=== PATIENT | female | born 1950 | race Caucasian/White ===

== ENCOUNTER 2019-08-19 09:59 | Emergency (ER) | payer OTHER ==
--- OUTSIDE RECORDS SUMMARY | 2019-08-19 10:00 | XMS REPORT | Clinical Summary ---
:1950 Author Organization [facility] Address [address] [place] [address] Care Team Providers Name Role Phone Vanessa Mcdonnell As Primary Care Provider Allergies Active Allergy Reactions Severity Noted Date Comments Codeine 03/18/2017 Medications Medication Sig Dispensed Refills Start Date End Date Status venlafaxine 0 12/18/2016 Active (EFFEXOR) 75 MG tablet lovastatin (MEVACOR) 0 03/02/2017 Active 20 MG tablet TOVIAZ 8 mg tablet 0 12/22/2016 Active extended release 24 hr choline fenofibrate 0 01/07/2017 Active (TRILIPIX) 135 mg capsule CRANBERRY FRUIT Take by 0 Active EXTRACT (CRANBERRY mouth. 1500 ORAL) mg 2 per day vitamin E 1000 UNIT Take 1,000 0 Active capsule Units by mouth daily. cholecalciferol, Take 2,000 0 Active vitamin D3, (VITAMIN Units by D3) 2,000 unit mouth capsule capsule daily. DOCOSAHEXANOIC Take by 0 Active ACID/EPA (FISH OIL mouth. 1400 ORAL) mg MULTIVITAMIN ORAL Take by 0 Active mouth. UNABLE TO FIND Jana 0 Discontinued Bi-Flex 9 (Therapy completed) Active Problems Problem Noted Date Other osteoporosis without current pathological fracture 03/18/2018 Hypercalcemia 03/18/2018 Encounters Date Type Specialty Care Team Description 03/21/2019 Office Visit Endocrinology Marcus Duke, Other osteoporosis without current pathological fracture (Primary Dx); Hypercalcemia 03/21/2019 Ancillary Procedure Radiology Marcus Duke, Other osteoporosis without current pathological fracture 03/21/2019 Orders Only Endocrinology Tiffany Cook, Other osteoporosis MA without current pathological fracture (Primary Dx) after 08/18/2018 Family History Medical History Relation Name Comments Heart disease Father Diabetes Mother Hypertension Mother Relation Name Status Comments Father Mother Social History Tobacco Use Types Packs/Day Years Used Date Never Smoker Smokeless Tobacco: Never Used Alcohol Use Drinks/Week oz/Week Comments Yes socially Sex Assigned at Date Recorded Not on file Job Start Date Occupation Industry Not on file Not on file Not on file Travel History Travel Start Travel End No recent travel history available. Last Filed Vital Signs Vital Sign Reading Time Taken Comments Blood Pressure 147/85 03/21/2019 1:05 PM CDT Pulse 84 03/21/2019 1:05 PM CDT Temperature - - Respiratory Rate - - Oxygen Saturation - - Inhaled Oxygen Concentration - - Weight 80.8 kg (178 lb 3.2 oz) 03/21/2019 1:05 PM CDT Height 163.8 cm (5' 4.5") 03/21/2019 1:05 PM CDT Body Mass Index 30.12 03/21/2019 1:05 PM CDT Plan of Treatment Date Type Specialty Care Team Description 03/26/2020 Appointment Radiology Marcus Duke MD [address] [place], [place] [id number] 03/26/2020 Office Visit Endocrinology Marcus Duke MD [address] [place], [place] [id number] Health Maintenance Due Date Last Done Comments BREAST CANCER SCREENING 2001 COLONOSCOPY SCREENING 2001 SHINGLES VACCINES (#1) 2001 65+ PNEUMOCOCCAL VACCINE (1 of 2 - PCV13) 2016 INFLUENZA VACCINE 06/30/2019 Procedures Procedure Name Priority Date/Time Associated Diagnosis Comments BONE DENSITY Routine 03/21/2019 12:38 PM Other osteoporosis Results for this CDT without current procedure are in pathological fracture the results section. after 08/18/2018 Results Bone Density (03/21/2019 12:38 PM CDT) Specimen Narrative Performed At [facility] [address] [place] [address] Bone Density Report Name: Rocio Figueroa Sex: Female Age: 68 Ethnicity: White Height: 64.5 in Referring Provider: MARCUS DUKE Date of : 1950 Weight: 178.2lb Indication: Postmenopausal osteoporosis Accession number: [id number] Bone Density: Exam date 03/21/2019 Region BMD (g/cm2) T-score Z-score Classification AP Spine(L1-L4) 0.848 -1.80.1 Osteopenia Femoral Neck(Left) 0.522 -2.9 -1.3 Osteoporosis Total Hip(Left) 0.698 -2.0 -0.6 Osteopenia Femoral Neck(Right) 0.538 -2.8 -1.2 Osteoporosis Total Hip(Right) 0.640 -2.5 -1.1 Osteoporosis Total Hip Mean 0.669 -2.3 -0.9 Osteopenia World Health Organization criteria for BMD impression classify patients as Normal (T-score at or above 1.0), Osteopenia (T-score between 1.0 and 2.5), or Osteoporosis (T-score at or below 2.5). 10-year Fracture Risk: Major Osteoporotic Fracture 16% Hip Fracture 4.2% Reported Risk Factors: [place] (), T-score(WHO)=-2.8, BMI=30.1 FRAX Version 3.08. Fracture probability calculated for an untreated patient. Fracture probability may be lower if the patient has received treatment. Previous Exams: Region Exam Date Age BMD (g/cm2) T-score BMD Change vs. Baseline BMD Change vs. Previous AP Spine(L1-L4) 03/21/2019 68 0.848 -1.8 3.1%* 3.1%* 03/18/2018 67 0.822 -2.0 Total Hip(Left) 03/21/2019 68 0.698 -2.0 2.4% 2.4% 03/18/2018 67 0.682 -2.1 Total Hip(Right) 03/21/2019 68 0.640 -2.5 4.1% 4.1% 03/18/2018 67 0.615 -2.7 *Denotes significance at 95% confidence level, LSC for AP Spine=0.022 g/cm2,LSC for Total Hip=0.027 g/cm2 Impression: The patient has osteoporosis, based on the Left Femoral Neck T-score. The patient has an estimated ten-year risk of hip fracture of 4.2% and an estimated ten-year risk of major fracture of 16%, based on the WHO FRAX algorithm. No significant bone loss was observed. Discussion: INCREASED RISK OF FRACTURE. BONE DENSITY IS UNDESIRABLY LOW AT ONE OR MORE SKELETAL SITES, CONSISTENT WITH POSTMENOPAUSAL OSTEOPOROSIS. This patient's lowest T-score meets the World Health Organization's (WHO) criteria for osteoporosis at one or more sites (T-score -2.5 or below). In untreated patients, the risk of osteoporotic fracture increases approximately two-fold for each 1.0 SD decrease in T-score.Low bone density is not the only risk factor for fracture; also consider factors such as patient's age, frailty or poor health, risk of falling, risk of injury, previous osteoporotic fracture, family history of osteoporosis, cigarette smoking, low body weight, etc. Not everyone with low bone mineral density has osteoporosis; osteomalacia and other metabolic bone disorders should also be considered. Patients who have osteoporosis should be evaluated for specific diseases and conditions (secondary causes) that may cause or contribute to bone loss. The [place] Association of Clinical Endocrinologists (AACE) and National Osteoporosis Foundation (NOF) recommend pharmacologic intervention for all postmenopausal women whose T-score is in this range. The patient should follow a healthful lifestyle (good nutrition with adequate calcium and vitamin D, and appropriate weight-bearing exercise). Follow-Up: Consider a repeat BMD and Vertebral Fracture Assessment (VFA) exam in 1-2 years or sooner if medically necessary, to reassess this patient's status. Reported by: Marcus Duke MD, [facility] [place], [facility] on 03/22/2019 6:18:00 AM. 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
[2019-08-19] MEDS ORDERED: ACETAMINOPHEN 325 MG TABLET ONE (10:27)
[2019-08-19] MEDS ORDERED: IBUPROFEN 200 MG TAB PO ONE (10:28)
--- NOTE | 2019-08-19 10:56 | RAD REPORT ---
EXAM DESCRIPTION: RAD - Shoulder Left 2 View - 08/19/2019 10:50 am CLINICAL HISTORY: Fall, left shoulder pain COMPARISON: None. TECHNIQUE: Internal and external rotation views of the left shoulder were obtained. FINDINGS: Curvilinear fracture is present involving the greater tuberosity of the proximal left ayana kylee near the bicipital groove. There is minimal displacement of the fracture fragment. No dislocation of the humeral head. No pathologic component. AC joint is normal in appearance. Acromial humeral levy nt space is normal. IMPRESSION: Fracture of the greater tuberosity proximal left humerus noted with minimal displacement .
--- NOTE | 2019-08-19 11:09 | ER ---
Nurse's Notes [facility] Name: Rocio Fiugeroa Age: 68 yrs Sex: Female : 1950 Arrival Date: 08/19/2019 Time: 10:01 Bed 11 Private MD: Diagnosis: Nondisplaced fracture of greater tuberosity of left humerus Presentation: 08/19 10:04 Presenting complaint: Patient states: Yesterday she slipped and fell and landed on her aj1 left shoulder, she has been having pain since then that is worse when she tries to raise her arm. Transition of care: patient was not received from another setting of care. Onset of symptoms was August 18, 2019. Risk Assessment: Do you want to hurt yourself or someone else? Patient reports no desire to harm self or others. Initial Sepsis Screen: Does the patient meet any 2 criteria? No. Patient's initial sepsis screen is negative. Does the patient have a suspected source of infection? No. Patient's initial sepsis screen is negative. Care prior to arrival: None. 10:04 Method Of Arrival: Ambulatory aj 10:04 Acuity: ABHISHEK 4 aj1 Triage Assessment: 10:08 General: Appears in no apparent distress. uncomfortable, Behavior is calm, cooperative, aj1 appropriate for age. Pain: Complains of pain in anterior aspect of left shoulder and posterior aspect of left shoulder Pain currently is 7 out of 10 on a pain scale. Neuro: Level of Consciousness is awake, alert, obeys commands. Cardiovascular: Patient's skin is warm and dry. Respiratory: Airway is patent Respiratory effort is even, unlabored, Respiratory pattern is regular, symmetrical. GI: No signs and/or symptoms were reported involving the gastrointestinal system. : No signs and/or symptoms were reported regarding the genitourinary system. Derm: No signs and/or symptoms reported regarding the dermatologic system. Skin is pink, warm \T\ dry. normal. Musculoskeletal: Range of motion: limited in left shoulder. Historical: - Allergies: 10:08 Codeine; aj1 - Home Meds: 10:08 Lovastatin Oral [Active]; Toviaz oral oral [Active]; venlafaxine oral oral [Active]; aj1 cranberry oral oral [Active]; Probiotic oral oral [Active]; Colace oral oral [Active]; Fish Oil oral oral [Active]; multivitamin oral oral [Active]; Vitamin D Oral [Active]; - PMHx: 10:08 breast cancer- left mastectomy; cyst under neck; Hyperlipidemia; aj1 - Immunization history:: Flu vaccine is up to date. - Social history:: Smoking status: Patient/guardian denies using tobacco. - Ebola Screening: : Patient denies travel to an Ebola-affected area in the 21 days before illness onset. Screenin:29 Abuse screen: Denies threats or abuse. Denies injuries from another. Nutritional hb screening: No deficits noted. Tuberculosis screening: No symptoms or risk factors identified. Fall Risk None identified. Assessment: 10:29 Reassessment: Patient appears in no apparent distress at this time. No changes from hb previously documented assessment. Patient and/or family updated on plan of care and expected duration. Pain level reassessed. Patient is alert, oriented x 3, equal unlabored respirations, skin warm/dry/pink. 11:15 Reassessment: Patient appears in no apparent distress at this time. Patient and/or hb family updated on plan of care and expected duration. Pain level reassessed. Patient is alert, oriented x 3, equal unlabored respirations, skin warm/dry/pink. 11:16 Reassessment: Discharge ordered, awaiting copies of radiology christ per CARLOS Mccann. hb Vital Signs: 10:08 BP 148 / 81; Pulse 92; Resp 18; Temp 98.1; Pulse Ox 97% on R/A; Weight 78.47 kg (R); aj1 Height 5 ft. 4 in. (162.56 cm) (R); Pain 7/10; 10:08 Body Mass Index 29.70 (78.47 kg, 162.56 cm) aj1 ED Course: 10:01 Patient arrived in ED. as 10:04 Triage completed. aj1 10:08 Arm band placed on Patient placed in an exam room. aj1 10:14 Ramy Garcia PA is PHCP. cp 10:14 Ketan Hanley MD is Attending Physician. cp 10:29 Patient has correct armband on for positive identification. Call light in reach. hb 10:57 XRAY Shoulder LEFT 2 view In Process Unspecified. EDMS 10:58 Pablo Castillo MD is Referral Physician. cp 11:03 Referral Physician role handed off by Pablo Castillo MD cp 11:04 Pablo Castillo MD is Referral Physician. cp 11:05 Juanita Rod, RN is Primary Nurse. hb 11:15 No provider procedures requiring assistance completed. Patient did not have IV access hb during this emergency room visit. Administered Medications: 10:29 Drug: Ibuprofen 800 mg Route: PO; hb 11:14 Follow up: Response: No adverse reaction hb 10:29 Drug: Tylenol 650 mg Route: PO; hb 11:15 Follow up: Response: No adverse reaction hb Outcome: 11:00 Discharge ordered by MD. cp 11:15 Discharged to home ambulatory. hb 11:15 Condition: stable 11:15 Discharge instructions given to patient, Instructed on discharge instructions, follow up and referral plans. medication usage, Demonstrated understanding of instructions, follow-up care, medications, Prescriptions given X 2. 11:30 Patient left the ED. hb Signatures: Dispatcher [employer] EDMS More Hand RN RN aj1 Johanna Cook as Ramy Garcia PA PA cp Juanita Rod, RN RN hb
--- NOTE | 2019-08-19 11:10 | EDPHYS ---
Physician Documentation [facility] Name: Rocio Figueroa Age: 68 yrs Sex: Female : 1950 Arrival Date: 08/19/2019 Time: 10:01 Bed 11 Private MD: ED Physician Ketan Hanley HPI: 08/19 10:18 This 68 yrs old Female presents to ER via Ambulatory with complaints of cp Shoulder Pain. 10:18 The patient or guardian complains of decreased range of motion, an injury, pain, that cp is acute, tenderness. left shoulder. Context: resulted from a fall, The patient experiences decreased range of motion, when attempts to raise arm, The patient reports no obvious deformity. Onset: The symptoms/episode began/occurred yesterday. Historical: - Allergies: 10:08 Codeine; aj1 - Home Meds: 10:08 Lovastatin Oral [Active]; Toviaz oral oral [Active]; venlafaxine oral oral [Active]; aj1 cranberry oral oral [Active]; Probiotic oral oral [Active]; Colace oral oral [Active]; Fish Oil oral oral [Active]; multivitamin oral oral [Active]; Vitamin D Oral [Active]; - PMHx: 10:08 breast cancer- left mastectomy; cyst under neck; Hyperlipidemia; aj1 - Immunization history:: Flu vaccine is up to date. - Social history:: Smoking status: Patient/guardian denies using tobacco. - Ebola Screening: : Patient denies travel to an Ebola-affected area in the 21 days before illness onset. ROS: 10:25 Constitutional: Negative for body aches, chills, fever, poor PO intake. cp 10:25 Eyes: Negative for injury, pain, redness, and discharge. cp 10:25 Neck: Negative for pain with movement, pain at rest, stiffness, tenderness, bony tenderness. 10:25 Cardiovascular: Negative for chest pain, edema, palpitations. 10:25 Respiratory: Negative for cough, shortness of breath, wheezing. 10:25 Abdomen/GI: Negative for abdominal pain, nausea, vomiting, and diarrhea. 10:25 MS/extremity: Positive for decreased range of motion, pain, tenderness, of the left lateral shoulder, Negative for deformity, paresthesias. 10:25 All other systems are negative. Exam: 10:30 Constitutional: The patient appears in no acute distress, alert, awake, cp non-diaphoretic, non-toxic, well developed, well nourished. 10:30 Head/Face: Normocephalic, atraumatic. cp 10:30 Neck: C-spine: vertebral tenderness, is not appreciated, crepitus, is not appreciated, ROM/movement: is normal, is supple, without pain, no range of motions limitations. 10:30 Chest/axilla: Inspection: normal. 10:30 Cardiovascular: Rate: normal, Rhythm: regular, Pulses: Pulses are 2+ in right radial artery and left radial artery. 10:30 Respiratory: the patient does not display signs of respiratory distress, Respirations: normal, no use of accessory muscles, no retractions, no splinting, no tachypnea. 10:30 Abdomen/GI: Exam negative for discomfort, distension, guarding, Inspection: abdomen appears normal. 10:30 Back: pain, is absent, ROM is normal, vertebral tenderness, is not appreciated. 10:30 Musculoskeletal/extremity: ROM: limited passive range of motion due to pain, in the left shoulder, Perfusion: the extremity is normally perfused throughout, Sensation intact. Joints: All joints are normal except the left shoulder displays limited range of motion, pain at rest, tenderness. Vital Signs: 10:08 BP 148 / 81; Pulse 92; Resp 18; Temp 98.1; Pulse Ox 97% on R/A; Weight 78.47 kg (R); aj1 Height 5 ft. 4 in. (162.56 cm) (R); Pain 7/10; 10:08 Body Mass Index 29.70 (78.47 kg, 162.56 cm) aj1 Procedures: 11:15 Splinting: Splint applied to left shoulder using sling, applied by nurse. Examined by cp me, post splint application: neurovascular intact, Patient tolerated well. MDM: 10:18 Patient medically screened. cp 10:30 Differential diagnosis: Anterior dislocation with fracture, Anterior dislocation cp without fracture, Posterior dislocation with fracture, Posterior dislocation without fracture. 11:00 Data reviewed: vital signs, nurses notes, radiologic studies, plain films. cp 11:00 Test interpretation: by ED physician or midlevel provider: plain radiologic studies. cp Counseling: I had a detailed discussion with the patient and/or guardian regarding: the historical points, exam findings, and any diagnostic results supporting the discharge/admit diagnosis, radiology results, the need for outpatient follow up, a orthopedic surgeon, to return to the emergency department if symptoms worsen or persist or if there are any questions or concerns that arise at home. 08/19 10:20 Order name: XRAY Shoulder LEFT 2 view cp 08/19 10:58 Order name: Sling; Complete Time: 11:14 cp Administered Medications: 10:29 Drug: Ibuprofen 800 mg Route: PO; hb 11:14 Follow up: Response: No adverse reaction hb 10:29 Drug: Tylenol 650 mg Route: PO; hb 11:15 Follow up: Response: No adverse reaction hb Disposition: 13:30 Co-signature as Attending Physician, Ketan Hanley MD I agree with the assessment and kdr plan of care. Disposition: 08/19/19 11:00 Discharged to Home. Impression: Nondisplaced fracture of greater tuberosity of left humerus. - Condition is Stable. - Discharge Instructions: Shoulder Pain. - Prescriptions for Ibuprofen 800 mg Oral Tablet - take 1 tablet by ORAL route every 8 hours As needed take with food; 30 tablet. Ultram 50 mg Oral Tablet - take 1 tablet by ORAL route every 6 hours As needed; 20 tablet. - Medication Reconciliation Form, Thank You Letter, Antibiotic Education, Prescription Opioid Use form. - Follow up: Pablo Castillo MD; When: 2 - 3 days; Reason: left shoulder fracture. Follow up: Pablo Castillo MD; When: 2 - 3 days; Reason: Recheck today's complaints. - Problem is new. - Symptoms have improved. Signatures: Dispatcher [employer] More Kaufman RN RN aj1 Ketan Hanley MD MD [facility] Ramy Garcia PA PA Juanita Mancuso RN RN Corrections: (The following items were deleted from the chart) 10:08/18 10:25 Constitutional: Negative for body aches, chills, fever, poor PO intake, cp cp 08/19 10:08/18 10:25 Eyes: Negative for injury, pain, redness, and discharge, cp cp 08/19 10:08/18 10:25 Neck: Negative for pain with movement, pain at rest, stiffness, tenderness, cp bony tenderness, cp 08/19 10:08/18 10:25 Cardiovascular: Negative for chest pain, cp cp 08/19 10:57 08/18 10:25 Respiratory: Negative for cough, shortness of breath, wheezing, cp cp 08/19 10:57 08/18 10:25 Abdomen/GI: Negative for abdominal pain, nausea, vomiting, and diarrhea, cp cp 08/19 10:57 08/18 10:25 Back: Negative for pain at rest, pain with movement, cp cp 08/19 10:08/18 10:25 MS/extremity: Positive for decreased range of motion, pain, tenderness, of cp the left lateral shoulder, Negative for paresthesias, cp 08/19 10:57 08/18 10:25 Skin: Negative for rash, cp cp 08/19 10:08/18 10:25 Neuro: Negative for altered mental status, headache, numbness, weakness, cp cp 08/19 10:57 08/18 10:25 All other systems are negative, cp cp 08/19 11:04 11:00 08/19/2019 11:00 Discharged to Home. Impression: Nondisplaced fracture of greater cp tuberosity of left humerus. Condition is Stable. Forms are Medication Reconciliation Form, Thank You Letter, Antibiotic Education, Prescription Opioid Use. Follow up: Pablo Castillo; When: 2 - 3 days; Reason: left shoulder fracture. Problem is new. Symptoms have improved. cp 11:30 11:04 08/19/2019 11:00 Discharged to Home. Impression: Nondisplaced fracture of greater hb tuberosity of left humerus. Condition is Stable. Discharge Instructions: Shoulder Pain. Prescriptions for Ibuprofen 800 mg Oral Tablet - take 1 tablet by ORAL route every 8 hours As needed take with food; 30 tablet. and Forms are Medication Reconciliation Form, Thank You Letter, Antibiotic Education, Prescription Opioid Use. Follow up: Pablo Castillo; When: 2 - 3 days; Reason: Recheck today's complaints. Problem is new. Symptoms have improved. cp
[2019-08-19 11:35] VITALS: BP 148/81; TEMP 98.1; O2SAT 97
== END 2019-08-19 11:30 | disposition home or self-care (01) ==
LOC: ER 09:59
PROC: 2W39X1Z Immobilization of Left Upper Extremity using Splint (ICD-10-PCS; principal; 2019-08-19)
DX: S42.255A Nondisplaced fracture of greater tuberosity of left humerus, initial encounter for closed fracture (principal); W19.XXXA Unspecified fall, initial encounter; Y93.9 Activity, unspecified; Y92.9 Unspecified place or not applicable; Z85.3 Personal history of malignant neoplasm of breast; Z90.12 Acquired absence of left breast and nipple; E78.5 Hyperlipidemia, unspecified
CPT/HCPCS: 99283